=== PATIENT | female | born 1960 | race Caucasian/White ===

== ENCOUNTER → 2017-03-26 | Outpatient (CLI) | payer MEDICARE, MEDICAID ==
[~2017-03-26] MED LIST: ALDACTONE100 MG PO; ASPIRIN E.C.325 MG PO; ASTELIN137 MCG/AC NAS; BACLOFEN20 MG PO; BROVANA15 MCG/2 M INH; BUMEX2 MG PO; CALCIUM 600/VIT1 CAP PO; CARDIZEM CD240 MG PO; CILOXAN 5 ML5 M1 OP; COLACE100 MG PO; CYTOMEL0.005 MG PO; EPI-PEN1 MG/ML SC; FLUONAZOLE100 M1 PO; LAXATIVE5 M1 PO; LIDOCAINE INH; LORCET 10/650 61 TA1 PO; METHYLPREDNISOLONE 40 MG PO; MS CONTIN30 MG PO; NEURONTIN300 MG PO; NEURONTIN600 MG PO; NOVOLOG 70/30 M10 ML SC; NOVOLOG FLEX100 U/ML SC; PHENTERMINE37.5 M1 PO; POTASSIUM20 MEQ PO; PREDNISONE20 MG PO; PRILOSEC40 MG PO; SINGULAIR10 MG PO; Synthroid,Lev100 MCG PO; ZANTAC150 MG PO; ZYRTEC10 M1 PO; [UNRECOGNIZED DRUG - OTHER] INH; [UNRECOGNIZED DRUG - OTHER] PO
[2017-03-29 13:05] LABS: IGG SUBCLASS 1 779 mg/dL (422-1292); IGG SUBCLASS 2 428 mg/dL (117-747); IGG SUBCLASS 3 50 mg/dL (41-129); IGG SUBCLASS 4 36 mg/dL (1-291)
== END | disposition home or self-care (01) ==
LOC: LAB 15:36
DX: D80.3 Selective deficiency of immunoglobulin G [IgG] subclasses (principal); I82.90 Acute embolism and thrombosis of unspecified vein

== ENCOUNTER → 2019-05-01 | Outpatient (CLI) | payer MEDICARE, MEDICAID ==
--- NOTE | 2019-05-01 12:04 | NUR ---
PT HERE FOR MEDIPORT FLUSH. SITE ACCESSED WITH NONCORING NEEDLE RSC WITHOUT DIFFUCULTY. PROMPT BLOOD RETURN. HEPARIN FLUSH PER P/P. TOLERATED WELL NEEDLE REMOVED. DRESSING APPLIED. NO BLEEDING NOTED. МАРИНА NICHOLE RN
== END | disposition home or self-care (01) ==
LOC: MEDIPORT 00:17
DX: Z95.9 Presence of cardiac and vascular implant and graft, unspecified (principal); M81.0 Age-related osteoporosis without current pathological fracture

== ENCOUNTER 2019-10-04 08:47 | Inpatient (IN) | payer MEDICARE, MEDICAID ==
[2019-10-04] VITALS (7 sets, daily range): BP systolic 140–159; BP diastolic 76–91
[~2019-10-04 08:47] MED LIST changes: -ASPIRIN E.C.325 MG PO; +BACLOFEN20 M1 PO; -BACLOFEN20 MG PO; +BUMETANIDE2 MG PO; -BUMEX2 MG PO; -CYTOMEL0.005 MG PO; +CYTOMEL5 MCG PO; +ECPIRIN325 MG PO; +METHYLPREDNISOL40 MG IM; -METHYLPREDNISOLONE 40 MG PO; +POTASSIUM CHLO20 ME3 PO; -POTASSIUM20 MEQ PO; +PRILOSEC20 M1 PO; -PRILOSEC40 MG PO; -Synthroid,Lev100 MCG PO; +Synthroid,Levo88 MCG PO
[2019-10-04 12:39] LABS: BASO # 0.1 10*3/uL (0.0-0.1); BASO % 1.1 % (0.0-1.0); EOS # 0.2 10*3/uL (0.0-0.4); EOS % 3.3 % (1.0-4.0); HEMOGLOBIN 12.4 g/dl (12.0-16.0); LYMPH # 2.3 10*3/uL (1.3-4.4); LYMPH % 35.2 % (27.0-41.0); MEAN CELL VOLUME 91.4 fl (81.0-99.0); MEAN CORPUSCULAR HGB 31.5 pg (27.0-31.0); MEAN CORPUSCULAR HGB CONC 34.4 g/dl (33.0-37.0); MEAN PLATELET VOLUME 9.5 fl (9.6-12.3); MONO # 0.6 10*3/uL (0.1-1.0); MONO % 8.3 % (3.0-9.0); NEUT # 3.5 10*3/uL (2.3-7.9); NEUT % 51.8 % (47.0-73.0); PLATELET COUNT AUTOMATED 388 10*3/uL (130-400); RED BLOOD COUNT 3.94 10*6/uL (4.10-5.10); RED CELL DISTRI WIDTH 12.6 % (0-14.5); WHITE BLOOD COUNT 6.7 10*3/uL (4.8-10.8)
[2019-10-04 12:54] LABS: ALBUMIN 3.8 gm/dl (3.1-4.5); ALKALINE PHOSPHATASE 81 U/L (45-117); BUN 15 mg/dl (7-24); CHLORIDE 107 mmol/L (98-107); CREATININE 0.67 mg/dL (0.55-1.02); POTASSIUM 4.6 mmol/L (3.5-5.1); SGOT/AST 33 IU/L (3-35); SGPT/ALT 44 U/L (12-78); SODIUM 140 mmol/L (136-145); TOTAL PROTEIN 7.3 gm/dL (6.4-8.2)
[2019-10-04 12:57] LABS: ACT PARTIAL THROMBO TIME 28.5 SECONDS (20.0-32.1); INTERNATIONAL NORM RATIO 0.9 (2.0-3.5)
[2019-10-04] MEDS ORDERED: ATARAX,VISTARIL50 MG PO (13:26)
--- NOTE | 2019-10-04 13:30 | NUR ---
Time: 1329 A 59 year old female admitted to under services of SARAH MEDINA DO. Pt. arrived via stretcher from ER. Chief complaint: intractable pain after sliding out of bed today. RORO BYRNES
[2019-10-04] MEDS ORDERED: VITAMIN D34000 UNIT PO (13:32)
[2019-10-04] MEDS ORDERED: FLONASE ALLERG9.9 ML NAS (13:33)
[2019-10-04] MEDS ORDERED: LORCET HD 10-31 EACH PO (13:36)
[2019-10-04] MEDS ORDERED: PREDNISONE20 M1 PO (13:43)
[2019-10-04] MEDS ORDERED: PROTONIX40 MG PO (13:43)
[2019-10-04] MEDS ORDERED: FLORASTOR250 MG PO (13:44)
[2019-10-04] MEDS ORDERED: ZOFRAN4 MG PO (13:45)
--- NOTE | 2019-10-04 13:45 | NUR ---
Pt has type list of home medications. Copy made and place in chart.
[2019-10-04] MEDS ORDERED: XOPENEX HFA15 GM INH (13:46)
[2019-10-04] MEDS ORDERED: RECLAST5 MG/100 M IV (13:47)
[2019-10-04] MEDS ORDERED: FLORANEX GRANU1 EACH PO (13:48)
[2019-10-04] MEDS ORDERED: [UNRECOGNIZED DRUG - OTHER] T (13:49)
[2019-10-04] MEDS ORDERED: IRON325 M1 PO (13:50)
[2019-10-04] MEDS ORDERED: CLOBETASOL PROP15 GM T (13:50)
[2019-10-04] MEDS ORDERED: VITAMIN C500 M4 PO (13:51)
[2019-10-04] MEDS ORDERED: GAMUNEX-C20 GM/200 SQ (13:52)
--- NOTE | 2019-10-04 14:01 | NUR ---
Spoke with Sydney Sanchez regarding pt med list and med rec updated.
--- NOTE | 2019-10-04 16:10 | NUR ---
Pt states she is "overdue" for ms contin. States she takes it around 3 pm and then at bed time and then early am. I changed times for med in order entry technician to best reflex pt home doseage times. Pt states she also take baclofen at the same time as ms contin.
--- NOTE | 2019-10-04 16:41 | NUR ---
Medicated with norco 10/325 mg per prn order for c/o lower back pain. Pt states she is way behind on pain medication schedule and would like something now in addition to routine ms contin.
--- NOTE | 2019-10-04 17:00 | NUR ---
Pt wanted blood sugar checked before meal. BSG waws 105.
[2019-10-05] VITALS: BP 150/75
--- NOTE | 2019-10-05 00:16 | NUR ---
DR POWERS AWARE OF PATIENT REQUESTING OMEPRAZOLE NOW AND SOMETHING CREAM FOR HER COCCYX
[2019-10-05 00:42] LABS: BILIRUBIN NEGATIVE (NEGATIVE); BLOOD NEGATIVE (NEGATIVE); CLARITY CLEAR (CLEAR); COLOR YELLOW (YELLOW); GLUCOSE NEGATIVE (NEGATIVE); KETONE NEGATIVE (NEGATIVE); LEUKO ESTERASE NEGATIVE (NEGATIVE); NITRITE NEGATIVE (NEGATIVE); SPECIFIC GRAVITY 1.025 (1.005-1.030); UROBILINOGEN 0.2 E.U./dl (0.2-1.0)
--- NOTE | 2019-10-05 00:52 | NUR ---
PATIENT REQUESTING BREATHING TREATMENT. DR POWERS AWARE
[2019-10-05 00:54] LABS: BACTERIA TRACE; RBC 0-2 rbc/hpf (0-2); WBC 0-2 wbc/hpf (0-5)
--- NOTE | 2019-10-05 06:20 | NUR ---
PATIENT STATES SHE TAKES 10MCG INSTEAD OF THE 5MCG ORDERED. NOTIFIED DR. POWERS. DR. POWERS TO CHANGE THE ORDER.
[2019-10-05 06:44] LABS: BASO # 0.1 10*3/uL (0.0-0.1); BASO % 1.1 % (0.0-1.0); EOS # 0.3 10*3/uL (0.0-0.4); EOS % 4.7 % (1.0-4.0); HEMOGLOBIN 12.6 g/dl (12.0-16.0); LYMPH # 2.3 10*3/uL (1.3-4.4); MEAN CELL VOLUME 91.8 fl (81.0-99.0); MEAN CORPUSCULAR HGB 30.4 pg (27.0-31.0); MEAN CORPUSCULAR HGB CONC 33.2 g/dl (33.0-37.0); MEAN PLATELET VOLUME 9.6 fl (9.6-12.3); MONO # 0.5 10*3/uL (0.1-1.0); MONO % 9.5 % (3.0-9.0); NEUT # 2.4 10*3/uL (2.3-7.9); NEUT % 43.5 % (47.0-73.0); PLATELET COUNT AUTOMATED 392 10*3/uL (130-400); RED BLOOD COUNT 4.14 10*6/uL (4.10-5.10); RED CELL DISTRI WIDTH 12.3 % (0-14.5); WHITE BLOOD COUNT 5.5 10*3/uL (4.8-10.8)
[2019-10-05 07:12] LABS: CHLORIDE 103 mmol/L (98-107); POTASSIUM 4.4 mmol/L (3.5-5.1); SODIUM 138 mmol/L (136-145)
[2019-10-05 07:19] LABS: ALBUMIN 3.6 gm/dl (3.1-4.5); ALKALINE PHOSPHATASE 77 U/L (45-117); BUN 19 mg/dl (7-24); CHOLESTEROL 159 mg/dL (<200); CREATININE 0.69 mg/dL (0.55-1.02); FREE T4 0.94 ng/dl (0.76-1.46); HDL CHOLESTEROL 61 mg/dl (40-60); LDL CHOLESTEROL 84 mg/dL (9-159); PHOSPHOROUS 4.4 mg/dL (2.5-4.9); SGOT/AST 31 IU/L (3-35); SGPT/ALT 41 U/L (12-78); TOTAL PROTEIN 7.2 gm/dL (6.4-8.2); TRIGLYCERIDES 70 mg/dl (<150); VLDL CHOLESTEROL 14 mg/dL (6-40)
[2019-10-05 07:23] LABS: THYROID STIM HORMONE (HS) 0.725 uIU/ml (0.358-4.75)
[2019-10-05 08:58] LABS: VITAMIN D, 25-HYDROXY 74.6 ng/mL (30-100)
[2019-10-05 09:00] VITALS: BP 166/81
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
[2019-10-05 12:00] VITALS: BP 164/74
--- NOTE | 2019-10-05 13:08 | NUR ---
[place] given per patient request for c/o lower back pain rated 9/10. Will monitor.
--- NOTE | 2019-10-05 14:20 | NUR ---
Waiting on results of LLE ultrasound and MRI before proceeding with OT evaluation. Janna Bowman OTr/L
--- NOTE | 2019-10-05 14:24 | NUR ---
PHYSICAL THERAPY Waiting on Ultrasound and MRI results prior to performing evaluation. Will attempt evaluation when patient is medically clear. Thank you Jacquelyn Olivas, PT, DPT
[2019-10-05 16:00] VITALS: BP 160/70
[2019-10-05 20:00] VITALS: BP 169/85
--- NOTE | 2019-10-05 21:26 | NUR ---
PRN NORCO ADMINISTERED AT THIS TIME FOR PT C/O CHRONIC BACK PAIN RATED A 9/10. NO OTHER COMPLAINTS AT THIS TIME. WILL CONTINUE TO MONITOR.
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
[2019-10-06] VITALS: BP 153/56
--- NOTE | 2019-10-06 00:10 | NUR ---
PER PATIENT MS CONTIN EFFECTIVE AT HELPING HER PAIN. PATIENT ASSISTED TO WASH UP BEFORE GOING TO BED.
--- NOTE | 2019-10-06 01:48 | NUR ---
24 HR chart check completed.
--- NOTE | 2019-10-06 05:45 | NUR ---
PATIENT MEDICATED WITH PRN NORCO FOR C/O 9/10 BACK PAIN. WILL MONITOR FOR EFFECTIVENESS.
[2019-10-06 08:00] VITALS: BP 154/85
--- NOTE | 2019-10-06 10:45 | NUR ---
Occupational Therapy evaluation completed on 4 with full eval to follow. Precautions include power w/c use, back and both shd pain, fall hx and fall risk,moderate complexity 51025. Recommend return home with home health SN, PT, OT.Thank you for this referral. Janna Bowman OTR/l
[2019-10-06 12:00] VITALS: BP 152/82
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
--- NOTE | 2019-10-06 13:00 | NUR ---
PT RESTING IN BED WITH EYES CLOSED NO C/O AT THIS TIME
--- NOTE | 2019-10-06 14:07 | NUR ---
case management talked with patient regarding home health services, she is agreeable to this and stated she had [facility] in the past, she stated she would like to use them again, case management will notify [facility] when patient is medically stable
--- NOTE | 2019-10-06 14:08 | NUR ---
patient called case management and stated her home health company isn't [facility] it is [facility], case management contacted [facility] and spoke to Luzma, informed Luzma that patient would like the staff visiting her from [facility] to be non smokers and that she would like a particular nurse Carmen to see her, Luzma stated she was aware of patient's requests and will attempt to accomadate all of them, Luzma stated if patient is discharged this weekend they will see her at home on Wednesday
[2019-10-06 16:00] VITALS: BP 150/78
--- NOTE | 2019-10-06 19:43 | NUR ---
SPOKE WITH DR MANUEL REGARDING PT REQUEST FOR SALINE MIST FOR DRY NOSE. T.O. TAKEN AT THIS TIME.
[2019-10-06 20:00] VITALS: BP 150/69
--- NOTE | 2019-10-06 21:00 | NUR ---
24 HOUR CHART CHECK COMPLETE.
[2019-10-07] VITALS: BP 152/64
--- NOTE | 2019-10-07 01:12 | NUR ---
MS CONTIN AND [place] ADMINISTERED FOR PT C/O 08/08 CHRONIC BACK PAIN AND ITCHING. WILL CONTINUE TO MONITOR AND REASSESS. PT IN BED AT THIS TIME WITH BED EXIT ALARM ACTIVATED. CALL LIGHT IN REACH.
--- NOTE | 2019-10-07 01:58 | NUR ---
PT ASLEEP AT THIS TIME, SLOUCHED OVER IN BED. NO SIGNS OF DISCOMFORT OR DISTRESS. RESPIRATIONS ERND. WILL CONTINUE TO MONITOR.
--- NOTE | 2019-10-07 05:33 | NUR ---
PRN NORCO ADMINISTERED FOR PT C/O LEFT SIDED CHRONIC BACK PAIN RATED AN 8/10.
[2019-10-07 09:00] VITALS: BP 140/74
--- NOTE | 2019-10-07 10:55 | NUR ---
GUSTAVO FOR 10/10 BACK PAIN
--- NOTE | 2019-10-07 13:23 | NUR ---
PT DISCHARGED, AWAITING RIDE HOME
--- NOTE | 2019-10-07 15:00 | NUR ---
AWAITING RIDE HOME
[2019-10-07 16:00] VITALS: BP 120/64
--- NOTE | 2019-10-07 19:22 | NUR ---
DC TO HOME, PT VERBALIZED GOOD UNDERSTANDING OF HOME CARE/FOLLOW
== END 2019-10-07 19:23 | disposition home health service (06) | DRG 551 ==
LOC: ED 08:47 → EDHOLD 12:24 → 4E 12:24
PROVIDERS: Emergency Medicine; Registered Nurse; ADMIT Family Medicine
DX: M48.061 Spinal stenosis, lumbar region without neurogenic claudication (principal); R53.2 Functional quadriplegia; S22.080A Wedge compression fracture of T11-T12 vertebra, initial encounter for closed fracture; E44.0 Moderate protein-calorie malnutrition; J96.11 Chronic respiratory failure with hypoxia; J44.9 Chronic obstructive pulmonary disease, unspecified; G89.4 Chronic pain syndrome; M85.88 Other specified disorders of bone density and structure, other site; M47.896 Other spondylosis, lumbar region; E11.9 Type 2 diabetes mellitus without complications; R29.6 Repeated falls; E03.9 Hypothyroidism, unspecified; Z99.81 Dependence on supplemental oxygen; Z88.1 Allergy status to other antibiotic agents; Z91.013 Allergy to seafood; Z91.030 Bee allergy status; Z88.5 Allergy status to narcotic agent; Z88.8 Allergy status to other drugs, medicaments and biological substances; Z91.018 Allergy to other foods; Z91.010 Allergy to peanuts; Z98.42 Cataract extraction status, left eye; Z98.41 Cataract extraction status, right eye; Z82.3 Family history of stroke; Z80.8 Family history of malignant neoplasm of other organs or systems; Z82.49 Family history of ischemic heart disease and other diseases of the circulatory system; Z79.899 Other long term (current) drug therapy; Z79.52 Long term (current) use of systemic steroids

== ENCOUNTER → 2022-05-01 | Outpatient (CLI) | payer MEDICARE, MEDICAID ==
[~2022-05-01] MED LIST changes: +ATARAX,VISTARIL50 MG PO; +CLOBETASOL PROP15 GM T; +FLONASE ALLERG9.9 ML NAS; +FLORANEX GRANU1 EACH PO; +FLORASTOR250 MG PO; +GAMUNEX-C20 GM/200 SQ; +IRON325 M1 PO; +LORCET HD 10-31 EACH PO; +PREDNISONE20 M1 PO; +PROTONIX40 MG PO; +RECLAST5 MG/100 M IV; +VITAMIN C500 M4 PO; +VITAMIN D34000 UNIT PO; +XOPENEX HFA15 GM INH; +ZOFRAN4 MG PO; +[UNRECOGNIZED DRUG - OTHER] T
== END | disposition home or self-care (01) ==
LOC: RAD 13:18
PROVIDERS: ATTEND Orthopaedic Surgery
DX: S52.514D Nondisplaced fracture of right radial styloid process, subsequent encounter for closed fracture with routine healing (principal); X58.XXXD Exposure to other specified factors, subsequent encounter

== ENCOUNTER → 2022-05-15 | Outpatient (CLI) | payer MEDICARE, MEDICAID | END | disposition home or self-care (01) | LOC: ORTHO 01:47 | PROVIDERS: ATTEND Orthopaedic Surgery | DX: S52.514D Nondisplaced fracture of right radial styloid process, subsequent encounter for closed fracture with routine healing (principal); X58.XXXD Exposure to other specified factors, subsequent encounter ==

== ENCOUNTER → 2022-10-16 | Day surgery (SDC) | payer MEDICARE, MEDICAID ==
[2022-10-16 10:49] LABS: ALKALINE PHOSPHATASE 57 U/L (45-117); CHOLESTEROL 189 mg/dL (<200); LDL CHOLESTEROL 94 mg/dL (9-159); SGOT/AST 19 IU/L (3-35); SGPT/ALT 30 U/L (12-78); TOTAL PROTEIN 7.2 gm/dL (6.4-8.2); TRIGLYCERIDES 49 mg/dl (<150)
[2022-10-17 07:06] LABS: CREATININE,URINE 84.7 mg/dL (Not Estab.)
== END | disposition home or self-care (01) ==
LOC: SDC 08:00
PROVIDERS: Internal Medicine; ATTEND Surgery Surgical Critical Care
DX: D80.3 Selective deficiency of immunoglobulin G [IgG] subclasses (principal); Z53.8 Procedure and treatment not carried out for other reasons

== ENCOUNTER 2023-01-06 02:57 | Inpatient (IN) | payer MEDICARE, MEDICAID ==
[~2023-01-06] VITALS: Ht 157.4 cm; Wt 48.3 kg
[2023-01-06] VITALS (7 sets, daily range): BP systolic 103–153; BP diastolic 49–104
[2023-01-06 06:14] LABS: BASO # 0.1 10*3/uL (0.0-0.1); BASO % 0.3 % (0.0-1.0); EOS % 0.1 % (1.0-4.0); HEMATOCRIT 25.7 % (37.0-47.0); LYMPH # 1.6 10*3/uL (1.3-4.4); LYMPH % 10.8 % (27.0-41.0); MEAN CELL VOLUME 65.2 fl (81.0-99.0); MEAN CORPUSCULAR HGB CONC 29.2 g/dl (33.0-37.0); MEAN PLATELET VOLUME 8.4 fl (9.6-12.3); MONO # 1.2 10*3/uL (0.1-1.0); MONO % 8.2 % (3.0-9.0); NEUT # 11.6 10*3/uL (2.3-7.9); NEUT % 80.3 % (47.0-73.0); PLATELET COUNT AUTOMATED 787 10*3/uL (130-400); RED BLOOD COUNT 3.94 10*6/uL (4.10-5.10); WHITE BLOOD COUNT 14.5 10*3/uL (4.8-10.8)
[2023-01-06 06:15] LABS: BILIRUBIN Negative (Negative); BLOOD Negative (Negative); CLARITY Clear (Clear); COLOR Yellow (Yellow); GLUCOSE Negative (Negative); KETONE 1+ (Negative); LEUKO ESTERASE 1+ (Negative); NITRITE Negative (Negative); PH 5.5 (4.5-8.0)
[2023-01-06 06:29] LABS: BACTERIA 1+; WBC 16-20 wbc/hpf (0-5)
[2023-01-06 06:39] LABS: ALKALINE PHOSPHATASE 77 U/L (46-116); BUN 29 mg/dl (9-23); CHLORIDE 94 mmol/L (98-107); POTASSIUM 5.1 mmol/L (3.4-5.1); SGPT/ALT 72 U/L (10-49); TOTAL PROTEIN 7.4 gm/dL (6.0-8.0)
[2023-01-06 06:56] LABS: URINE AMPHETAMINES Positive (1000ng/ml); URINE BARBITURATES Negative (200ng/ml); URINE BENZODIAZEPINES Negative (200ng/ml); URINE CANNABINOIDS (THC) Negative (50ng/ml); URINE COCAINE Negative (300ng/ml); URINE METHADONE Negative (300ng/ml); URINE OPIATES Positive (300ng/ml); URINE PHENCYCLIDINE Negative (25ng/ml)
[2023-01-06] MEDS ORDERED: MYRBETRIQ50 M1 PO (13:08)
[2023-01-07] VITALS: BP 149/96
[2023-01-07 08:00] VITALS: BP 182/78
[2023-01-07 08:03] LABS: BASO % 0.3 % (0.0-1.0); EOS % 0.1 % (1.0-4.0); HEMATOCRIT 24.9 % (37.0-47.0); LYMPH # 1.5 10*3/uL (1.3-4.4); LYMPH % 13.7 % (27.0-41.0); MEAN CELL VOLUME 65.7 fl (81.0-99.0); MEAN CORPUSCULAR HGB 18.7 pg (27.0-31.0); MEAN CORPUSCULAR HGB CONC 28.5 g/dl (33.0-37.0); MEAN PLATELET VOLUME 8.3 fl (9.6-12.3); MONO # 1.1 10*3/uL (0.1-1.0); MONO % 10.4 % (3.0-9.0); NEUT # 8.1 10*3/uL (2.3-7.9); NEUT % 75.2 % (47.0-73.0); NUCLEATED RED BLOOD CELL 0.2 % (0.0-0.0); PLATELET COUNT AUTOMATED 699 10*3/uL (130-400); RED BLOOD COUNT 3.79 10*6/uL (4.10-5.10); RED CELL DISTRI WIDTH 19.2 % (0-14.5); WHITE BLOOD COUNT 10.7 10*3/uL (4.8-10.8)
[2023-01-07 08:18] LABS: BUN 33 mg/dl (9-23); CHLORIDE 95 mmol/L (98-107); POTASSIUM 5.3 mmol/L (3.4-5.1)
[2023-01-07] MEDS ORDERED: PHENTERMINE H37.5 M1 PO (09:08)
[2023-01-07 09:18] LABS: RETICULOCYTE % 1.8 % (0.50-2.50)
[2023-01-07] MEDS ORDERED: NEURONTIN300 MG PO (09:21)
[2023-01-07 09:27] LABS: FREE T4 1.14 ng/dl (0.89-1.76); THYROID STIM HORMONE (HS) 0.512 uIU/ml (0.550-4.780)
[2023-01-07 09:28] LABS: VITAMIN D, 25-HYDROXY 85.1 ng/mL (30-100)
[2023-01-07] MEDS ORDERED: FAMOTIDINE40 MG PO (10:35)
[2023-01-07] MEDS ORDERED: PANTOPRAZOLE SO40 MG PO (10:48)
[2023-01-07] MEDS ORDERED: AZO BLADDER CO300 MG PO (11:16)
[2023-01-07] MEDS ORDERED: [UNRECOGNIZED DRUG - CODE] PO (11:21)
[2023-01-07 12:00] VITALS: BP 153/99
[2023-01-07 16:00] VITALS: BP 152/82
[2023-01-07 20:00] VITALS: BP 183/81
[2023-01-07 21:05] VITALS: BP 184/86
[2023-01-08] VITALS (11 sets, daily range): BP systolic 147–174; BP diastolic 60–94
[2023-01-08 06:16] LABS: BUN 32 mg/dl (9-23); CHLORIDE 98 mmol/L (98-107); POTASSIUM 5.3 mmol/L (3.4-5.1)
[2023-01-08 06:24] LABS: HEMATOCRIT 23.4 % (37.0-47.0); MEAN CELL VOLUME 66.3 fl (81.0-99.0); MEAN CORPUSCULAR HGB 18.7 pg (27.0-31.0); MEAN CORPUSCULAR HGB CONC 28.2 g/dl (33.0-37.0); MEAN PLATELET VOLUME 8.5 fl (9.6-12.3); NUCLEATED RED BLOOD CELL 0.4 % (0.0-0.0); PLATELET COUNT AUTOMATED 692 10*3/uL (130-400); RED BLOOD COUNT 3.53 10*6/uL (4.10-5.10); RED CELL DISTRI WIDTH 19.1 % (0-14.5); WHITE BLOOD COUNT 10.6 10*3/uL (4.8-10.8)
[2023-01-08 06:39] LABS: MANUAL DIFF REFLEX YES
[2023-01-08 07:09] LABS: OVALOCYTES FEW; PLATELET SUFFICIENCY HIGH (NORMAL); TOTAL CELLS COUNTED 100 #CELLS
[2023-01-08 22:35] LABS: BILIRUBIN Negative (Negative); BLOOD Negative (Negative); CLARITY Clear (Clear); COLOR Yellow (Yellow); GLUCOSE 1+ (Negative); KETONE Trace (Negative); LEUKO ESTERASE Negative (Negative); NITRITE Negative (Negative)
[2023-01-08 22:48] LABS: MUCOUS 1+; RBC 0-2 rbc/hpf (0-2); WBC 0-2 wbc/hpf (0-5)
[2023-01-09] VITALS: BP 151/63
[2023-01-09 06:32] LABS: HEMATOCRIT 31.2 % (37.0-47.0); MEAN CORPUSCULAR HGB 20.7 pg (27.0-31.0); MEAN CORPUSCULAR HGB CONC 29.5 g/dl (33.0-37.0); MEAN PLATELET VOLUME 8.6 fl (9.6-12.3); NUCLEATED RED BLOOD CELL 0.1 10*3/uL (0.0-0.0); NUCLEATED RED BLOOD CELL 0.4 % (0.0-0.0); PLATELET COUNT AUTOMATED 646 10*3/uL (130-400); RED BLOOD COUNT 4.45 10*6/uL (4.10-5.10); RED CELL DISTRI WIDTH 21.5 % (0-14.5)
[2023-01-09 06:37] LABS: MANUAL DIFF REFLEX YES; MEAN CELL VOLUME 70.1 fl (81.0-99.0)
[2023-01-09 06:55] LABS: TOTAL CELLS COUNTED 100 #CELLS
[2023-01-09 06:56] LABS: MICROCYTOSIS SLIGHT; PLATELET SUFFICIENCY HIGH (NORMAL)
[2023-01-09 06:57] LABS: BURR CELLS FEW; OVALOCYTES FEW; SCHISTOCYTES FEW; TARGET CELLS FEW
[2023-01-09 06:58] LABS: POLYCHROMASIA SLIGHT
[2023-01-09 07:20] LABS: BUN 28 mg/dl (9-23); CHLORIDE 96 mmol/L (98-107); POTASSIUM 4.4 mmol/L (3.4-5.1)
[2023-01-09 08:00] VITALS: BP 153/67
[2023-01-09 12:00] VITALS: BP 145/81
[2023-01-09 16:00] VITALS: BP 147/94
[2023-01-09 20:00] VITALS: BP 156/79
[2023-01-10] VITALS: BP 171/82
[2023-01-10 06:29] LABS: BASO % 0.1 % (0.0-1.0); EOS % 0.2 % (1.0-4.0); HEMATOCRIT 31.9 % (37.0-47.0); LYMPH # 1.7 10*3/uL (1.3-4.4); LYMPH % 13.8 % (27.0-41.0); MEAN CORPUSCULAR HGB 21.2 pg (27.0-31.0); MEAN CORPUSCULAR HGB CONC 29.5 g/dl (33.0-37.0); MEAN PLATELET VOLUME 8.7 fl (9.6-12.3); MONO # 0.9 10*3/uL (0.1-1.0); MONO % 7.7 % (3.0-9.0); NEUT # 9.3 10*3/uL (2.3-7.9); NEUT % 77.5 % (47.0-73.0); NUCLEATED RED BLOOD CELL 0.1 10*3/uL (0.0-0.0); NUCLEATED RED BLOOD CELL 0.4 % (0.0-0.0); PLATELET COUNT AUTOMATED 617 10*3/uL (130-400); RED BLOOD COUNT 4.43 10*6/uL (4.10-5.10); RED CELL DISTRI WIDTH 22.5 % (0-14.5)
[2023-01-10 08:00] VITALS: BP 155/76
[2023-01-10 09:23] LABS: ALKALINE PHOSPHATASE 56 U/L (46-116); BUN 22 mg/dl (9-23); CHLORIDE 98 mmol/L (98-107); POTASSIUM 4.9 mmol/L (3.4-5.1); SGPT/ALT 77 U/L (10-49); TOTAL PROTEIN 6.8 gm/dL (6.0-8.0)
[2023-01-10 12:00] VITALS: BP 151/79
[2023-01-10 16:00] VITALS: BP 154/66
[2023-01-10 20:00] VITALS: BP 148/76
[2023-01-11] VITALS: BP 145/85
[2023-01-11 05:29] LABS: ALKALINE PHOSPHATASE 53 U/L (46-116); BUN 26 mg/dl (9-23); CHLORIDE 98 mmol/L (98-107); SGPT/ALT 60 U/L (10-49); TOTAL PROTEIN 6.2 gm/dL (6.0-8.0)
[2023-01-11 05:30] LABS: POTASSIUM 3.9 mmol/L (3.4-5.1)
[2023-01-11 06:32] LABS: BASO % 0.2 % (0.0-1.0); EOS # 0.1 10*3/uL (0.0-0.4); EOS % 0.6 % (1.0-4.0); HEMATOCRIT 30.5 % (37.0-47.0); LYMPH # 1.6 10*3/uL (1.3-4.4); LYMPH % 13.1 % (27.0-41.0); MEAN CELL VOLUME 73.8 fl (81.0-99.0); MEAN CORPUSCULAR HGB 21.1 pg (27.0-31.0); MEAN CORPUSCULAR HGB CONC 28.5 g/dl (33.0-37.0); MEAN PLATELET VOLUME 8.6 fl (9.6-12.3); MONO % 7.6 % (3.0-9.0); NEUT # 9.7 10*3/uL (2.3-7.9); NEUT % 77.9 % (47.0-73.0); NUCLEATED RED BLOOD CELL 0.2 % (0.0-0.0); PLATELET COUNT AUTOMATED 557 10*3/uL (130-400); RED BLOOD COUNT 4.13 10*6/uL (4.10-5.10); RED CELL DISTRI WIDTH 23.2 % (0-14.5); WHITE BLOOD COUNT 12.5 10*3/uL (4.8-10.8)
[2023-01-11 08:00] VITALS: BP 156/89
[2023-01-11 12:00] VITALS: BP 124/60
[2023-01-11] MEDS ORDERED: Carafate1 GM PO (12:01)
[2023-01-11] MEDS ORDERED: AMLODIPINE BESYL5 MG PO (12:10)
[2023-01-11] MEDS ORDERED: LISINOPRIL10 M1 PO (12:10)
[2023-01-11] MEDS ORDERED: FLUCONAZOLE100 MG PO (12:13)
[2023-01-11 16:00] VITALS: BP 152/60
== END 2023-01-11 22:00 | disposition home or self-care (01) | DRG 871 ==
LOC: ED 02:57 → EDHOLD 07:40 → 4E 07:40
PROVIDERS: Emergency Medicine; Registered Nurse; Student in an Organized Health Care Education/Training Program; ADMIT Internal Medicine; ATTEND Internal Medicine
PROC: 5A0935A Assistance with Respiratory Ventilation, Less than 24 Consecutive Hours, High Flow/Velocity Cannula (ICD-10-PCS; 2023-01-06)
PROC: 5A0935A Assistance with Respiratory Ventilation, Less than 24 Consecutive Hours, High Flow/Velocity Cannula (ICD-10-PCS; 2023-01-07)
PROC: 30233N1 Transfusion of Nonautologous Red Blood Cells into Peripheral Vein, Percutaneous Approach (ICD-10-PCS; principal; 2023-01-08)
PROC: 5A0935A Assistance with Respiratory Ventilation, Less than 24 Consecutive Hours, High Flow/Velocity Cannula (ICD-10-PCS; 2023-01-08)
DX: A41.9 Sepsis, unspecified organism (principal); N17.0 Acute kidney failure with tubular necrosis; N39.0 Urinary tract infection, site not specified; J96.10 Chronic respiratory failure, unspecified whether with hypoxia or hypercapnia; E87.1 Hypo-osmolality and hyponatremia; J96.11 Chronic respiratory failure with hypoxia; T82.598A Other mechanical complication of other cardiac and vascular devices and implants, initial encounter; B37.0 Candidal stomatitis; Z91.89 Other specified personal risk factors, not elsewhere classified; D50.0 Iron deficiency anemia secondary to blood loss (chronic); E87.5 Hyperkalemia; R74.01 Elevation of levels of liver transaminase levels; E11.65 Type 2 diabetes mellitus with hyperglycemia; Y83.8 Other surgical procedures as the cause of abnormal reaction of the patient, or of later complication, without mention of misadventure at the time of the procedure; I10 Essential (primary) hypertension; K21.9 Gastro-esophageal reflux disease without esophagitis; E03.9 Hypothyroidism, unspecified; G89.4 Chronic pain syndrome; J44.9 Chronic obstructive pulmonary disease, unspecified; M54.50 Low back pain, unspecified; Z88.2 Allergy status to sulfonamides; Z88.6 Allergy status to analgesic agent; Z88.4 Allergy status to anesthetic agent; Z91.030 Bee allergy status; Z99.81 Dependence on supplemental oxygen; Z88.8 Allergy status to other drugs, medicaments and biological substances; Z79.82 Long term (current) use of aspirin; Y92.89 Other specified places as the place of occurrence of the external cause

== ENCOUNTER 2024-02-18 11:53 | Emergency (ER) | payer MEDICARE, MEDICAID ==
[~2024-02-18] VITALS: Ht 157.4 cm; Wt 52.2 kg
[~2024-02-18 11:53] MED LIST changes: +AMLODIPINE BESYL5 MG PO; +AZO BLADDER CO300 MG PO; +Carafate1 GM PO; +FAMOTIDINE40 MG PO; +FLUCONAZOLE100 MG PO; +LISINOPRIL10 M1 PO; +MYRBETRIQ50 M1 PO; +PANTOPRAZOLE SO40 MG PO; +PHENTERMINE H37.5 M1 PO; +[UNRECOGNIZED DRUG - CODE] PO
== END 2024-02-18 14:47 | disposition home or self-care (01) ==
LOC: ED 11:53
DX: S52.022A Displaced fracture of olecranon process without intraarticular extension of left ulna, initial encounter for closed fracture (principal); I25.10 Atherosclerotic heart disease of native coronary artery without angina pectoris; I10 Essential (primary) hypertension; K21.9 Gastro-esophageal reflux disease without esophagitis; E11.9 Type 2 diabetes mellitus without complications; J44.9 Chronic obstructive pulmonary disease, unspecified; Z88.8 Allergy status to other drugs, medicaments and biological substances; Z91.030 Bee allergy status; Z88.5 Allergy status to narcotic agent; Z91.013 Allergy to seafood; Z88.6 Allergy status to analgesic agent; Z91.018 Allergy to other foods; Z91.010 Allergy to peanuts; Z88.2 Allergy status to sulfonamides; Z98.51 Tubal ligation status; Z98.890 Other specified postprocedural states; W22.8XXA Striking against or struck by other objects, initial encounter; Y93.89 Activity, other specified; Y92.89 Other specified places as the place of occurrence of the external cause; Y99.8 Other external cause status

== ENCOUNTER → 2024-04-27 | Day surgery (SDC) | payer MEDICARE, MEDICAID ==
[~2024-04-27] MED LIST changes: +HEPARIN SODIUM 500 UNIT/5 ML SYR IV ONE; +HEPARIN SODIUM 500 UNIT/5 ML SYR IV SCH; +SODIUM CHLORIDE 0.9% 10 ML SYR IV PRN
[2024-04-27 13:07] LABS: BASO % 0.1 % (0.0-1.0); HEMATOCRIT 28.2 % (37.0-47.0); LYMPH # 0.6 10*3/uL (1.3-4.4); LYMPH % 6.1 % (27.0-41.0); MEAN CELL VOLUME 82.7 fl (81.0-99.0); MEAN CORPUSCULAR HGB 25.2 pg (27.0-31.0); MEAN CORPUSCULAR HGB CONC 30.5 g/dl (33.0-37.0); MEAN PLATELET VOLUME 9.4 fl (9.6-12.3); MONO # 0.6 10*3/uL (0.1-1.0); MONO % 6.4 % (3.0-9.0); NEUT # 8.1 10*3/uL (2.3-7.9); PLATELET COUNT AUTOMATED 547 10*3/uL (130-400); RED BLOOD COUNT 3.41 10*6/uL (4.10-5.10); RED CELL DISTRI WIDTH 15.6 % (0-14.5); WHITE BLOOD COUNT 9.3 10*3/uL (4.8-10.8)
[2024-04-27 13:29] LABS: URINE CREATININE RANDOM 94.43 mg/dL
[2024-04-27 13:34] LABS: ALKALINE PHOSPHATASE 66 U/L (46-116); BUN 36 mg/dl (9-23); CHLORIDE 103 mmol/L (98-107); CHOLESTEROL 216 mg/dL (<200); FREE T4 0.66 ng/dl (0.89-1.76); LDL CHOLESTEROL 122 mg/dL (9-159); POTASSIUM 4.6 mmol/L (3.4-5.1); SGPT/ALT 31 U/L (5-49); TOTAL PROTEIN 6.7 gm/dL (6.0-8.0); TRIGLYCERIDES 57 mg/dl (<150)
== END | disposition home or self-care (01) ==
LOC: SDC 11:00
PROVIDERS: ATTEND Internal Medicine
DX: E09.9 Drug or chemical induced diabetes mellitus without complications (principal); T38.0X5D Adverse effect of glucocorticoids and synthetic analogues, subsequent encounter

== ENCOUNTER 2024-07-16 16:14 | Emergency (ER) | payer MEDICARE, MEDICAID ==
[~2024-07-16] VITALS: Wt 54.4 kg
[~2024-07-16 16:14] MED LIST changes: -HEPARIN SODIUM 500 UNIT/5 ML SYR IV ONE; -HEPARIN SODIUM 500 UNIT/5 ML SYR IV SCH; -SODIUM CHLORIDE 0.9% 10 ML SYR IV PRN
[2024-07-16] MEDS ORDERED: LISINOPRIL20 MG PO (16:24)
[2024-07-16] MEDS ORDERED: LEADER ASPIRIN325 MG PO (16:30)
[2024-07-16] MEDS ORDERED: LIOTHYRONINE SO5 MCG PO (16:32)
[2024-07-16] MEDS ORDERED: METHYLPREDNISOL40 MG IM (16:34)
[2024-07-16] MEDS ORDERED: NAPROXEN 250 MG TAB PO ONE (17:10)
[2024-07-16] MEDS ORDERED: PERCOCET 5-3251 EACH PO (17:37)
== END 2024-07-16 17:43 | disposition home or self-care (01) ==
LOC: ED 16:14
DX: S63.055A Dislocation of other carpometacarpal joint of left hand, initial encounter (principal); M25.522 Pain in left elbow; J44.9 Chronic obstructive pulmonary disease, unspecified; K21.9 Gastro-esophageal reflux disease without esophagitis; I10 Essential (primary) hypertension; I25.10 Atherosclerotic heart disease of native coronary artery without angina pectoris; Z91.030 Bee allergy status; Z88.8 Allergy status to other drugs, medicaments and biological substances; Z88.6 Allergy status to analgesic agent; Z88.5 Allergy status to narcotic agent; Z91.013 Allergy to seafood; Z91.010 Allergy to peanuts; Z91.018 Allergy to other foods; Z88.2 Allergy status to sulfonamides; Z98.51 Tubal ligation status; Z98.890 Other specified postprocedural states; W23.0XXA Caught, crushed, jammed, or pinched between moving objects, initial encounter; Y93.89 Activity, other specified; Y92.89 Other specified places as the place of occurrence of the external cause; Y99.8 Other external cause status

== ENCOUNTER → 2024-11-03 | Outpatient (CLI) | payer OTHER, MEDICARE, MEDICAID ==
[~2024-11-03] MED LIST changes: +LEADER ASPIRIN325 MG PO; +LIOTHYRONINE SO5 MCG PO; +LISINOPRIL20 MG PO; +PERCOCET 5-3251 EACH PO
== END | disposition home or self-care (01) ==
LOC: EDSTATUS 03:18 → ORTHO 03:21 → RAD 17:19
PROVIDERS: ATTEND Orthopaedic Surgery
DX: S52.692A Other fracture of lower end of left ulna, initial encounter for closed fracture (principal); X58.XXXA Exposure to other specified factors, initial encounter; Y93.89 Activity, other specified; Y92.89 Other specified places as the place of occurrence of the external cause; Y99.8 Other external cause status

== ENCOUNTER → 2024-11-08 | Outpatient (CLI) | payer OTHER, MEDICARE, MEDICAID | END | disposition home or self-care (01) | LOC: ORTHO 03:47 | PROVIDERS: ATTEND Orthopaedic Surgery | DX: S52.235D Nondisplaced oblique fracture of shaft of left ulna, subsequent encounter for closed fracture with routine healing (principal); X58.XXXD Exposure to other specified factors, subsequent encounter ==

== ENCOUNTER → 2024-11-20 | Outpatient (CLI) | payer MEDICARE, MEDICAID | END | disposition home or self-care (01) | LOC: RAD 11-15 15:34 | PROVIDERS: ATTEND Orthopaedic Surgery | DX: Z13.820 Encounter for screening for osteoporosis (principal); M81.0 Age-related osteoporosis without current pathological fracture ==

== ENCOUNTER → 2024-12-18 | Outpatient (CLI) | payer OTHER, MEDICARE, MEDICAID | END | disposition home or self-care (01) | LOC: ORTHO 01:34 | PROVIDERS: ATTEND Orthopaedic Surgery | DX: S52.235D Nondisplaced oblique fracture of shaft of left ulna, subsequent encounter for closed fracture with routine healing (principal); X58.XXXD Exposure to other specified factors, subsequent encounter ==

== ENCOUNTER → 2025-02-12 | Outpatient (CLI) | payer OTHER, MEDICARE, MEDICAID | END | disposition home or self-care (01) | LOC: ORTHO 02:03 | PROVIDERS: ATTEND Orthopaedic Surgery | DX: S52.235D Nondisplaced oblique fracture of shaft of left ulna, subsequent encounter for closed fracture with routine healing (principal); S52.514D Nondisplaced fracture of right radial styloid process, subsequent encounter for closed fracture with routine healing; M19.031 Primary osteoarthritis, right wrist; X58.XXXD Exposure to other specified factors, subsequent encounter ==

== ENCOUNTER → 2025-04-11 | Outpatient (CLI) | payer MEDICARE, MEDICAID | END | disposition home or self-care (01) | LOC: ORTHO 01:13 | PROVIDERS: ATTEND Orthopaedic Surgery | DX: S52.235D Nondisplaced oblique fracture of shaft of left ulna, subsequent encounter for closed fracture with routine healing (principal); S52.514D Nondisplaced fracture of right radial styloid process, subsequent encounter for closed fracture with routine healing; X58.XXXD Exposure to other specified factors, subsequent encounter ==

== ENCOUNTER → 2025-05-25 | Outpatient (CLI) | payer MEDICARE, MEDICAID | END | disposition home or self-care (01) | LOC: ORTHO 05-23 01:19 | PROVIDERS: ATTEND Orthopaedic Surgery | DX: S52.235 Nondisplaced oblique fracture of shaft of left ulna (principal); X58.XXXD Exposure to other specified factors, subsequent encounter ==

== ENCOUNTER 2025-07-01 15:01 | Emergency (ER) | payer MEDICARE, MEDICAID ==
[2025-07-01 18:26] LABS: BASO # 0.0 10*3/uL (0.0-0.1); BASO % 0.3 % (0.0-1.0); EOS # 0.1 10*3/uL (0.0-0.4); EOS % 0.5 % (1.0-4.0); MEAN CELL VOLUME 84.8 fl (81.0-99.0); MEAN CORPUSCULAR HGB 25.9 pg (27.0-31.0); MEAN PLATELET VOLUME 8.8 fl (9.6-12.3); MONO # 0.8 10*3/uL (0.1-1.0); MONO % 7.4 % (3.0-9.0); NEUT # 8.3 10*3/uL (2.3-7.9); NEUT % 74.5 % (47.0-73.0); NUCLEATED RED BLOOD CELL 0.0 % (0.0-0.0); NUCLEATED RED BLOOD CELL 0.0 10*3/uL (0.0-0.0); PLATELET COUNT AUTOMATED 404 10*3/uL (130-400); RED CELL DISTRI WIDTH 18.6 % (0-14.5)
[2025-07-01 18:47] LABS: BUN 26 mg/dl (9-23); SGPT/ALT 35 U/L (5-49)
[2025-07-01] MEDS ORDERED: Acetaminophen/Hydrocodone HP 10/325 PO ONE (20:05)
[2025-07-01 20:17] LABS: BILIRUBIN Negative (Negative); BLOOD Negative (Negative); CLARITY Clear (Clear); COLOR Yellow (Yellow); KETONE Trace (Negative); LEUKO ESTERASE Negative (Negative); NITRITE Negative (Negative); PH 6.5 (4.5-8.0); SPECIFIC GRAVITY 1.025 (1.001-1.030); UROBILINOGEN 1.0 E.U./dl (0.0-1.0)
[2025-07-01 20:45] LABS: EPITHELIAL CELLS 0-2; MUCOUS TRACE; RBC 0-2 rbc/hpf (0-2); WBC 0-2 wbc/hpf (0-5)
[2025-07-01] MEDS ORDERED: HEPARIN SODIUM 500 UNIT/5 ML SYR IV ONE (21:20)
== END 2025-07-01 22:08 | disposition home or self-care (01) ==
LOC: ED 15:01
PROVIDERS: Nurse Practitioner
DX: M26.602 Left temporomandibular joint disorder, unspecified (principal); Z98.890 Other specified postprocedural states; Z88.8 Allergy status to other drugs, medicaments and biological substances

== ENCOUNTER → 2025-07-13 | Outpatient (CLI) | payer MEDICARE, MEDICAID | END | disposition home or self-care (01) | LOC: ORTHO 13:41 | PROVIDERS: ATTEND Orthopaedic Surgery | DX: S52.235D Nondisplaced oblique fracture of shaft of left ulna, subsequent encounter for closed fracture with routine healing (principal); X58.XXXD Exposure to other specified factors, subsequent encounter ==